=== PATIENT | male | born 1995 | race African-American/Black ===

== ENCOUNTER 2017-04-20 00:27 | Emergency (ER) | payer MEDICARE, MEDICAID, OTHER ==
[~2017-04-20] VITALS: Ht 188 cm; Wt 70.0 kg
[~2017-04-20 00:27] MED LIST: ALBU6.7H INH; BENZ100 PO; DOXY100T PO; MMW SWISH-SPIT; PRED20 PO; SERO100T PO; TRAZ50TA78 PO; ZOLO100T PO
[2017-04-20 00:36] VITALS: BP 141/92; PULSE 101; RESP 18; TEMP 97.7; O2SAT 100
[2017-04-20 00:40] VITALS: BP 141/92; PULSE 96; RESP 18; O2SAT 100
[2017-04-20] MEDS ORDERED: MAGICADU2 SWISH-SWAL (00:48)
[2017-04-20] MEDS ORDERED: TRAZ50TA12 PO (00:48)
[2017-04-20] MEDS ORDERED: SERO100T PO (00:48)
[2017-04-20] MEDS ORDERED: ALBU6.7H INH (00:48)
[2017-04-20] MEDS ORDERED: ZOLO100T PO (00:48)
[2017-04-20] MEDS ORDERED: PRED-503 PO (00:48)
[2017-04-20] MEDS ORDERED: BENZ100 PO (00:48)
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
--- NOTE | 2017-04-20 01:31 | RADRPT ---
EXAM DATE/TIME: 04/20/2017 01:17 [facility] COMPARISON: No previous studies available for comparison. INDICATIONS : Head pain. RADIATION DOSE: 56.35 CTDIvol (mGy) MEDICAL HISTORY : Asthma SURGICAL HISTORY : None. ENCOUNTER: Initial ACUITY: 1 day PAIN SCALE: 7/10 LOCATION: Bilateral cranial TECHNIQUE: Multiple contiguous axial images were obtained of the head. Using automated exposure control and adj ustment of the mA and/or kV according to patient size, radiation dose was kept as low as reasonably a chievable to obtain optimal diagnostic quality images. DICOM format image data is available electro nically for review and comparison. FINDINGS: CEREBRUM: The ventricles are normal for age. No evidence of midline shift, mass lesion, hemorrhage or acute in farction. No extra-axial fluid collections are seen. POSTERIOR FOSSA: The cerebellum and brainstem are intact. The 4th ventricle is midline. The cerebellopontine angle i s unremarkable. EXTRACRANIAL: The visualized portion of the orbits is intact. SKULL: The calvaria is intact. No evidence of skull fracture. CONCLUSION: 1. No evidence of acute intracranial pathology. No masses are identified. Ceasar Monsivais MD on April 20, 2017 at 1:30 Board Certified Radiologist. This report was verified electronically.
--- NOTE | 2017-04-20 01:50 | RADRPT ---
EXAM DATE/TIME: 04/20/2017 01:17 [facility] COMPARISON: No previous studies available for comparison. INDICATIONS : Head pain. RADIATION DOSE: 35.42 CTDIvol (mGy) MEDICAL HISTORY : Asthma SURGICAL HISTORY : None. ENCOUNTER: Initial ACUITY: 1 day PAIN SCALE: 7/10 LOCATION: neck TECHNIQUE: Volumetric scanning of the cervical spine was performed. Multiplanar reconstructions in the sagittal, coronal and oblique axial planes were performed. Using automated exposure control and adjustment o f the mA and/or kV according to patient size, radiation dose was kept as low as reasonably achievable to obtain optimal diagnostic quality images. DICOM format image data is available electronically f or review and comparison. FINDINGS: VERTEBRAE: Normal vertebral body height. ALIGNMENT: No evidence of subluxation. C2-C3: The bony spinal canal is normal in size. No evidence of disc bulge or herniation. The neural forami na are bilaterally patent. C3-C4: The bony spinal canal is normal in size. No evidence of disc bulge or herniation. The neural forami na are bilaterally patent. C4-C5: The bony spinal canal is normal in size. No evidence of disc bulge or herniation. The neural forami na are bilaterally patent. C5-C6: The bony spinal canal is normal in size. No evidence of disc bulge or herniation. The neural forami na are bilaterally patent. C6-C7: The bony spinal canal is normal in size. No evidence of disc bulge or herniation. The neural forami na are bilaterally patent. C7-T1: The bony spinal canal is normal in size. No evidence of disc bulge or herniation. The neural forami na are bilaterally patent. 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 There is no evidence of acute fracture. Ceasar Monsivais MD on April 20, 2017 at 1:46 Board Certified Radiologist. This report was verified electronically.
[2017-04-20] MEDS ORDERED: ACETAMINOPHEN 325 MG TAB PO ONE (03:00)
== END 2017-04-20 03:56 | disposition home or self-care (01) ==
LOC: NEPE 00:27
DX: R51 Headache (principal)
CPT/HCPCS: 70450; 72125; 99285

== ENCOUNTER 2017-08-01 17:45 | Emergency (ER) | payer MEDICARE, MEDICAID ==
[~2017-08-01] VITALS: Ht 188 cm; Wt 75.0 kg
[~2017-08-01 17:45] MED LIST changes: -DOXY100T PO; +MAGICADU2 SWISH-SWAL; -MMW SWISH-SPIT; +PRED-503 PO; -PRED20 PO; +TRAZ50TA12 PO; -TRAZ50TA78 PO
[2017-08-01 17:48] VITALS: BP 126/58; PULSE 90; RESP 18; TEMP 100.7; O2SAT 97
[2017-08-01] MEDS ORDERED: OSEL75 PO (19:49)
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
== END 2017-08-01 20:13 | disposition home or self-care (01) ==
LOC: NEPD 17:45
DX: R50.9 Fever, unspecified (principal); R51 Headache; J02.9 Acute pharyngitis, unspecified; R05 Cough; R09.81 Nasal congestion; M79.1 Myalgia; R53.81 Other malaise; J45.909 Unspecified asthma, uncomplicated; F41.9 Anxiety disorder, unspecified
CPT/HCPCS: 99283